=== PATIENT | male | born 1945 | race African-American/Black ===

== ENCOUNTER 2019-02-24 23:49 | Emergency (ER) | payer OTHER ==
[~2019-02-24] VITALS: Ht 180.3 cm; Wt 101.2 kg
[~2019-02-24 23:49] MED LIST: ACETAMINOPHEN325 M1 OR; BYSTOLIC10 MG OR; BYSTOLIC10 MG PO; HYDROCHLOROTHIA25 M1 PO; HYDROCODON-ACE1 EAC7 PO; HYTRIN 2MG CAPSU2 M1 OR; KLOR-CON 10 ER10 MEQ OR; LOPRESSOR50 PO; LORAZEPAM 0.50.5 MG OR; MAG-OX 400 TAB400 M1 OR; NAPROSYN375 MG PO; NORCO 5-325 TA1 EACH PO; NORVASC 2.5 MG2.5 M1 PO; NORVASC10 MG PO
[2019-02-25] MEDS ORDERED: NORCO 5-325 TA1 EAC1 PO (03:08)
[2019-02-25 03:57] VITALS: BP 134/74
== END 2019-02-25 03:20 | disposition home or self-care (01) ==
LOC: ER 23:49
DX: M43.6 Torticollis (principal); I10 Essential (primary) hypertension; Z86.73 Personal history of transient ischemic attack (TIA), and cerebral infarction without residual deficits; Z88.8 Allergy status to other drugs, medicaments and biological substances; Z87.891 Personal history of nicotine dependence

== ENCOUNTER 2020-01-27 06:01 | Emergency (ER) | payer OTHER ==
[~2020-01-27] VITALS: Ht 180.3 cm; Wt 88.0 kg
[~2020-01-27 06:01] MED LIST changes: +NORCO 5-325 TA1 EAC1 PO
[2020-01-27 06:33] LABS: ABSOLUTE NEUTROPHILS 4.2 thou/uL (1.4-8.2); BASOPHILS 0.5 % (0.0-2.0); HEMATOCRIT 37.4 % (42.0-52.0); HEMOGLOBIN 12.6 gm/dL (14.0-18.0); LYMPHOCYTES 29.6 % (24.0-44.0); MCH 29.1 pg (26.0-34.0); MCHC 33.8 g/dL (28.0-37.0); MCV 86.3 fL (80.0-100.0); MONOCYTES 9.5 % (1.0-8.0); PLATELET COUNT 207 thou/uL (150-400); POLYS 59.4 % (36.0-66.0); RBC 4.33 mil/uL (4.50-6.00); RDW 13.9 % (10.5-14.5)
[2020-01-27 06:45] LABS: CREATININE 1.4 mg/dL (0.7-1.3)
[2020-01-27 06:49] LABS: POTASSIUM 2.9 mmol/L (3.5-5.1)
[2020-01-27 06:51] LABS: ALBUMIN 3.8 g/dL (3.4-5.0); TOTAL BILIRUBIN 0.6 mg/dL (0.2-1.0); TOTAL PROTEIN 7.9 g/dL (6.4-8.2)
[2020-01-27 06:54] LABS: URINE BILIRUBIN NEGATIVE (Negative); URINE BLOOD TRACE (Negative); URINE CLARITY CLEAR; URINE COLOR YELLOW; URINE GLUCOSE-RANDOM* NEGATIVE (Negative); URINE KETONES NEGATIVE (Negative); URINE LEUKOCYTES-REFLEX NEGATIVE (Negative); URINE NITRITE-REFLEX NEGATIVE (Negative); URINE PROTEIN (DIPSTICK) NEGATIVE (Negative); URINE UROBILINOGEN 0.2 E.U./dl (0.2-1.0)
--- NOTE | 2020-01-27 08:14 | EKG ---
[facility] [place] [address] ELECTROCARDIOGRAM REPORT Name: DAHLIA VILLATORO Room #: [facility].#: [id number] Admission: 01/27/20 Attend Phys: Discharge: Date of : 41 Report #: [id number] THIS REPORT FOR: cc: Yves Watson MD, Bernard O. MD Couchonnal, Luis F. MD ~ THIS REPORT FOR: //name// [facility] ED Test Date: 2020-01-27 Test Time: 06:52:50 Pat Name: DAHLIA VILLATORO Department: Room: Gender: M [employer] Operator: MAXWELL : 1945 Requested By: Josh Sheppard Order Number: [id number] : Saúl Wan Measurements Intervals [place] Rate: 76 P: 56 AL: 249 QRS: -29 QRSD: 178 T: 108 QT: 502 QTc: 565 Interpretive Statements Sinus rhythm Prolonged AL interval Left bundle branch block Compared to ECG 06/04/2016 16:22:00 First degree AV block now present Electronically Signed On 01-27-2020 8:13:44 CDT by Saúl Wan [email or web address] <ELECTRONICALLY SIGNED> By: Saúl Wan MD 01/27/20 [id number] [id number] Saúl Wan MD /[facility]
[2020-01-27 09:18] VITALS: BP 134/69
== END 2020-01-27 09:18 | disposition home or self-care (01) ==
LOC: ER 06:01
PROVIDERS: Emergency Medicine
DX: R10.31 Right lower quadrant pain (principal); R10.32 Left lower quadrant pain; R05 Cough; R14.0 Abdominal distension (gaseous); I10 Essential (primary) hypertension; Z86.73 Personal history of transient ischemic attack (TIA), and cerebral infarction without residual deficits; Z98.890 Other specified postprocedural states; Z79.899 Other long term (current) drug therapy; Z88.8 Allergy status to other drugs, medicaments and biological substances; Z91.013 Allergy to seafood; Z87.891 Personal history of nicotine dependence

== ENCOUNTER 2020-05-14 10:49 | Emergency (ER) | payer OTHER ==
[~2020-05-14] VITALS: Ht 180.3 cm; Wt 89.4 kg
[2020-05-14] MEDS ORDERED: K-DUR10 MEQ PO (10:59)
[2020-05-14] MEDS ORDERED: CARVEDILOL12.5 MG PO (10:59)
[2020-05-14] MEDS ORDERED: TERAZOSIN HCL10 MG PO (11:00)
[2020-05-14] MEDS ORDERED: MOBIC7.5 MG PO (13:45)
[2020-05-14 14:02] VITALS: BP 155/83
== END 2020-05-14 14:04 | disposition home or self-care (01) ==
LOC: ER 10:49
DX: S70.01XA Contusion of right hip, initial encounter (principal); I10 Essential (primary) hypertension; Z79.899 Other long term (current) drug therapy; Z87.891 Personal history of nicotine dependence; Z88.8 Allergy status to other drugs, medicaments and biological substances; Z91.013 Allergy to seafood; W06.XXXA Fall from bed, initial encounter; Y93.89 Activity, other specified; Y92.89 Other specified places as the place of occurrence of the external cause; Y99.8 Other external cause status

== ENCOUNTER 2021-06-24 23:55 | Emergency (ER) | payer OTHER ==
[~2021-06-24] VITALS: Ht 177.8 cm; Wt 77.1 kg
--- NOTE | ~2021-06-24 | EMS ---
[facility] [address] [place] [address] EMS Patient Care Report Name: DAHLIA VILLATORO Room #: DEP [facility] Ashraf#: [id number] Admission: 06/24/21 Attend Phys: Discharge: 06/25/21 Date of : 41 Report #: [id number] THIS REPORT FOR: //name// Report Transmitted: 06/28/2021 13:05 EMS Care Summary [place], [place]/[facility] Incident [id number] @ 06/24/2021 23:15 Incident [id number] [place] [address] [address] Patient DAHLIA VILLATORO Male, 75 Years 1945 Patient Address [id number] [place] [address] [address] [place] [address] Patient History Hypertension (HTN),Stroke/CVA, Patient Allergies Lisinopril, Patient Medications Amlodipine, Hydrochlorothiazide (Hctz), Carvedilol, Chief Complaint VOMITING Disposition Transported No Lights/[place] Dispatch Reason Hemorrhage/Laceration Transported To [facility] Narrative PT FOUND STANDING IN BEDROOM OF HIS [address] ON SCENE. PT STATES THAT HE HAS BEEN INTERMITTENTLY VOMITING FOR THE PAST WEEK. PT STATES THAT TONIGHT HE NOTICED THAT THERE WAS BLOOD IN HIS VOMIT. PT STATES THAT HE HAS NOT HAD [facility] [address] [place] [address] EMS Patient Care Report Name: DAHLIA VILLATORO Room #: DEP ER Pascale#: [id number] Admission: 06/24/21 Attend Phys: Discharge: 06/25/21 Date of : 41 Report #: [id number] VOMITING LIKE THIS EVER BEFORE. PT STATES THAT HE HAS BEEN UNABLE TO EAT W/ ANY CONSISTENCY FOR THE LAST WEEK. PT HAS NO VISIBLE TRAUMA. PT HAS NO COMPLAINTS OF PAIN, SOB, CP OR TRAUMA. NO CHANGES NOTED ENROUTE. Initial Vitals @23:33P: 86,R: 16,BP: 123/60,Pain: 0/10,GCS: 15,Glucose: 80,SpO2: 95,Revised Trauma: 12, Assessments @23:26MENTAL:No Abnormalities,SKIN:No Abnormalities,HEENT:Head/Face: No Abnormalities,LUNG SOUNDS:General: Vomiting,ABDOMEN:General: Vomiting,PELVIS//GI:No Abnormalities,EXTREMITIES:PULSE:NEURO:No Abnormalities, Impression Vomiting Procedures @23:26 ALS Assessment Response: UnchangedSucceeded @23:35 IV Therapy - Saline Lock 0cc (18 ga) Site: Antecubital-Left Response: UnchangedSucceeded @23:32 Stretcher Response: Unchanged Timeline 23:09,Call Received 23:09,Dispatch Notified 23:15,Dispatched 23:17,En Route 23:23,On Scene 23:26,At Patient 23:26,ALS Assessment,Response: UnchangedSucceeded, 23:32,Stretcher,Response: Unchanged 23:33,BP: 123/60 M,PULSE: 86,RR: 16 R,SPO2: 95 Ox,ETCO2: ,B,PAIN: 0,GCS: 15, 23:35,IV Therapy - Saline Lock 0cc 18 ga Site: Antecubital-Left,Response: UnchangedSucceeded, 23:40,Depart Scene 23:50,At Destination 23:59,Call Closed Disclaimer [email or web address] Copyright 2021 [employer] This EMS Care Summary contains data elements from the applicable legal record (which may be displayed differently). It is designed to provide pertinent information for the following purposes: continuity of care, clinical quality, [facility] [address] [place] [address] EMS Patient Care Report Name: DAHLIA VILLATORO [facility] [id number] Admission: 06/24/21 Attend Phys: Discharge: 06/25/21 Date of : 41 Report #: [id number] and state data reporting. The complete legal record is available to ED staff and administrators of the receiving hospital in [employer] Patient Tracker. All data is provided "as is."
[~2021-06-24 23:55] MED LIST changes: +CARVEDILOL12.5 MG PO; +K-DUR10 MEQ PO; +MOBIC7.5 MG PO; +TERAZOSIN HCL10 MG PO
[2021-06-25 01:15] LABS: ABSOLUTE NEUTROPHILS 3.1 thou/uL (1.4-8.2); BASOPHILS 0.7 % (0.0-2.0); EOSINOPHILS 0.2 % (0.0-3.0); HEMATOCRIT 31.6 % (42.0-52.0); HEMOGLOBIN 10.5 gm/dL (14.0-18.0); LYMPHOCYTES 23.5 % (24.0-44.0); MCH 28.6 pg (26.0-34.0); MCHC 33.2 g/dL (28.0-37.0); MCV 86.1 fL (80.0-100.0); MONOCYTES 8.9 % (1.0-8.0); PLATELET COUNT 176 thou/uL (150-400); POLYS 66.7 % (36.0-66.0); RBC 3.67 mil/uL (4.50-6.00); RDW 14.5 % (10.5-14.5); WBC 4.7 thou/uL (4.0-11.0)
[2021-06-25 01:22] LABS: CALCIUM 8.7 mg/dL (8.5-10.1); POTASSIUM 3.3 mmol/L (3.5-5.1)
[2021-06-25 01:28] LABS: ALBUMIN 3.4 g/dL (3.4-5.0); TOTAL BILIRUBIN 0.7 mg/dL (0.2-1.0); TOTAL PROTEIN 7.4 g/dL (6.4-8.2)
[2021-06-25] MEDS ORDERED: TESSALON PERLE100 MG PO (03:36)
[2021-06-25] MEDS ORDERED: ONDANSETRON HCL4 M2 PO (03:36)
[2021-06-25 04:12] VITALS: BP 127/61
== END 2021-06-25 05:15 | disposition home or self-care (01) ==
LOC: ER 23:55
PROVIDERS: Emergency Medicine
DX: U07.1 COVID-19 (principal); I10 Essential (primary) hypertension; Z86.73 Personal history of transient ischemic attack (TIA), and cerebral infarction without residual deficits; Z79.1 Long term (current) use of non-steroidal anti-inflammatories (NSAID); Z79.899 Other long term (current) drug therapy; Z88.8 Allergy status to other drugs, medicaments and biological substances; Z91.013 Allergy to seafood; Z87.891 Personal history of nicotine dependence